=== PATIENT | female | born 1960 | race Caucasian/White ===

== ENCOUNTER 2020-04-03 14:04 | Emergency (ER) | payer MEDICAID ==
[~2020-04-03] VITALS: Ht 154.9 cm; Wt 61.2 kg
[2020-04-03 14:20] VITALS: BP 144/85
--- NOTE | 2020-04-03 14:24 | NUR ---
59 Y/F PRESENTS WITH RASH TO L FLANK AND R L CALF X 3 DAY. REPORTS BURNING 7/10 PAIN. PT IS CONCERNED DAUGTHER WAS JUST DX WITH MRSA PMH- DM ALLERGIES- NAPROSYN RX- GLIPIZIDE AND LIPITOR
[2020-04-03 15:02] VITALS: BP 144/85
== END 2020-04-03 15:02 | disposition home or self-care (01) ==
LOC: MED 14:04
DX: L02.211 Cutaneous abscess of abdominal wall (principal); L03.311 Cellulitis of abdominal wall; E11.9 Type 2 diabetes mellitus without complications; Z98.890 Other specified postprocedural states
CPT/HCPCS: 82948; 99283